=== PATIENT | female | born 1970 | race Caucasian/White ===

== ENCOUNTER 2017-03-25 18:44 | Emergency (ER) | payer BC ==
--- NOTE | 2017-03-26 08:12 | ER ---
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 Denies any chest pain, hemoptysis, or altered level of consciousness. Exam remarkable for nontoxic, afebrile female. CTA chest shows no evidence of PE, pneumothorax, or pneumonia. Degenerative joint disease of facet joints is noted. No evidence of collapsed disc or vertebra. The patient advised to use Tylenol 1 g 3 to 4 times a day in addition to her Xarelto. Follow up Dr. Mace as needed. Pete Gilbert MD/ jennifer JOB #: [id number] CC: Roderick Peña MD, Attending Physician Estelita Mace MD, Family Physician
== END 2017-03-25 20:25 | disposition home or self-care (01) ==
LOC: ER 18:44
DX: M47.895 Other spondylosis, thoracolumbar region (principal); R06.02 Shortness of breath; Z86.711 Personal history of pulmonary embolism; Z86.718 Personal history of other venous thrombosis and embolism; Z88.2 Allergy status to sulfonamides; Z79.899 Other long term (current) drug therapy